=== PATIENT | male | born 1950 | race Caucasian/White ===

== ENCOUNTER → 2017-06-20 | Outpatient (CLI) | payer MEDICARE ==
--- NOTE | 2017-06-20 18:37 | Diagnostic Imaging Report ---
PROCEDURE:TESTICULAR ULTRASOUND with Dopplers COMPARISON:None. INDICATIONS:spermatocele of epididymis TECHNIQUE: Arguello-scale and color doppler images of the testicles and scrotal contents were obtained. Duplex imaging with spectral waveform analysis was performed of the testicular arteries and veins. FINDINGS: RIGHT SCROTUM: Testicle: 4.3 x 2.6 x 4.0 cm. Uniform echotexture. No masses. Epididymal head: 0.6 x 1.2 x 1.1 cm. No cysts. Hydrocele: None Varicocele: None LEFT SCROTUM: Testicle: 4.0 x 2.3 x 3.3 cm. Uniform echotexture. No masses. Epididymal head: 1.1 x 1.2 x 1.0 cm. No cysts. Hydrocele: None Varicocele: None CONCLUSION: Normal testicular ultrasound. Dictated by: Nigel Lynn M.D. on 06/20/2017 at 18:46 Electronically approved by: Nigel Lynn M.D. on 06/20/2017 at 18:46
--- NOTE | 2017-06-20 18:37 | Diagnostic Imaging Report ---
PROCEDURE:TESTICULAR DOPPLER ULTRASOUND COMPARISON:None. INDICATIONS:spermatocele of epididymis TECHNIQUE:The scrotum was evaluated with kang scale and color duplex Doppler sonography. FINDINGS: TESTES:Normal appearance and flow. EPIDIDYMIS:Negative. OTHER:Negative. CONCLUSION: Please see testicular ultrasound for combined dictation. Dictated by: Nigel Lynn M.D. on 06/20/2017 at 18:46 Electronically approved by: Nigel Lynn M.D. on 06/20/2017 at 18:46
== END ==
LOC: US 12:55
PROVIDERS: ATTEND Urology
DX: N43.40 Spermatocele of epididymis, unspecified (principal)
CPT/HCPCS: 76870; 93976

== ENCOUNTER → 2017-10-30 | Outpatient (CLI) | payer MEDICARE ==
[~2017-10-30] MED LIST: IOPAMIDOL 370 MG/ML 200 ML INFUS..BTL INJ ONE; SODIUM CHLORIDE 0.9% 50ML 50 ML ONE
[2017-10-30 15:15] LABS: BLOOD UREA NITROGEN 17 mg/dL (7-26); BUN/CREATININE RATIO 14 (6-25); CREATININE, SERUM 1.18 mg/dL (0.72-1.25); EST GLOMERULAR FILTRATION RATE > 60 ML/MIN (60-)
--- NOTE | 2017-10-31 07:38 | Diagnostic Imaging Report ---
Exam: Soft tissue neck CT with IV contrast History: Neck mass, increasing in size x2 weeks and submandibular area. Comparison studies: None Technique: Axial, coronal and sagittal images from the skull base to the thoracic inlet. Coronal and sagittal images reconstructed from the axial data. Intravenous contrast: 100 cc of Omnipaque 300. Findings: Submandibular glands: Focal 2.1 cm area of asymmetric enhancement along the lateral and inferior margin of the right submandibular gland. The remaining right and left submandibular gland are otherwise homogeneous, normal in size. No calcified sialolith or significant periglandular inflammatory changes. Upper aerodigestive tract: No mass or enhancing abnormalities. Incidental oropharyngeal tonsilliths are sequela of previous infection/inflammation. Paranasal sinuses: Right maxillary sinus is partially opacified with circumferential mucosal thickening and retention cyst or polyp. Partially opacified right anterior ethmoid air cell. Remaining sinuses are clear. Lymph nodes: No radiographically significant adenopathy. Vessels: The carotid and vertebral arteries are patent. Calcified atherosclerosis at the cervical carotid bulbs do not result in significant stenosis. The internal jugular veins are patent. The right internal jugular vein is dominant. Thyroid gland: 0.9 cm hypodense nodule in the superior lobe of the right thyroid gland and 0.5 cm calcified nodule in the interpolar region of the right thyroid lobe. No mass or nodule identified in the left thyroid lobe. Parotid glands: Homogeneous, normal in size no mass. Orbits: No abnormalities. Paranasal sinuses: Clear. Temporal bones: No gross abnormalities. Skull base and facial bones: Intact. Cervical spine: Severely degenerated C5-C6 disc with disc osteophyte complex which indents the thecal sac but results in only mild canal stenosis. Moderately degenerated C4-C5 and C6-C7 discs. Multilevel facet arthrosis. Uncovertebral facet arthrosis result in moderate foraminal stenosis on the left at C3-C4, moderate bilateral foraminal stenosis at C5-C6 and mild to moderate left and mild right foraminal stenosis at C6-C7. IMPRESSION: 1. Focal 2.1 cm area of enhancement in the right submandibular gland. 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 Additional consideration would include unusual focal sialoadenitis in the appropriate clinical setting. Recommend FNA to exclude malignancy. 2. No radiographically significant cervical lymphadenopathy. 3. Nonspecific maxillary sinus inflammatory changes. 4. Degenerative changes in the cervical spine. 5. Incidental small right thyroid lobe nodules. Signed by: Dr. Clemente Oropeza M.D. on 10/31/2017 7:35 AM
== END ==
LOC: CT 14:21
PROVIDERS: ATTEND Family Medicine
DX: R22.1 Localized swelling, mass and lump, neck (principal)
CPT/HCPCS: 36415; 70491; 82565; 84520; Q9967